=== PATIENT | female | born 1990 | race Caucasian/White ===

== ENCOUNTER 2023-07-22 09:18 | Emergency (ER) | payer BC, MEDICARE, SELFPAY ==
[2023-07-22 09:40] VITALS: BP 102/65; PULSE 80; RESP 16; TEMP 36.3; O2SAT 100
--- NOTE | 2023-07-22 09:49 | ED.FEMALEGU ---
HPI - Female Genitourinary General Chief complaint: Urogenital-Female Stated complaint: urinary issue Time Seen by Provider: 07/22/23 09:49 Source: patient Mode of arrival: ambulatory Limitations: no limitations History of Present Illness HPI Narrative: 33-year-old female presents with complaint of urinary frequency, urgency, dysuria, lower abdominal cramping. Reports that symptoms started 3 days ago with irritation after having intercourse several times. Symptoms progressed. Notice blood in urine last night. States she got up last night at least 12 times to urinate. Took azo at 4:00 a.m.. Afebrile. Denies nausea vomiting diarrhea. All systems reviewed and negative except as noted above. Related Data Home Medications Medication Instructions Recorded Confirmed buspirone 10 mg tablet 10 mg PO DAILY 07/22/23 07/22/23 famotidine 20 mg tablet 20 mg PO DAILY 07/22/23 07/22/23 metoprolol tartrate 50 mg tablet 50 mg PO BID 07/22/23 07/22/23 nortriptyline 25 mg capsule 25 mg PO HS 07/22/23 07/22/23 Allergies Allergy/AdvReac Type Severity Reaction Status Date / Time bupropion [From Wellbutrin] Allergy Intermediate Rash Verified 07/22/23 09:56 phenytoin [From Dilantin] Allergy Intermediate Rash Verified 07/22/23 09:56 Review of Systems Review of Systems: CONSTITUTIONAL: Denies fever, chills, or sweats. EYES: Denies visual changes, redness, or discharge. ENT: Denies rhinorrhea, congestion, sore throat, or otalgia. CARDIOVASCULAR: Denies chest pain, palpitations, or edema. RESPIRATORY: Denies cough or dyspnea. GASTROINTESTINAL: Denies abdominal pain, nausea, vomiting, or diarrhea. GENITOURINARY: Reports dysuria, urgency, frequency and hematuria. SKIN: Denies rash or itching. MUSCULOSKELETAL: Denies back pain, joint pain, or myalgia. NEUROLOGIC: Denies headache, numbness, or weakness. PSYCHIATRIC: Denies anxiety or depression. All other systems reviewed are negative, except as documented in HPI. PMFSH Comments At time of signature, agree with nursing past medical, surgical, social and family history. There is no relevant family history pertinent to the presenting complaint. Exam Narrative: GENERAL: This is a well-nourished, well-developed patient, in no apparent distress. HEAD: normocephalic, atraumatic. EYES: PERRL. Sclera clear/white. Vision is grossly intact. EARS: External ears normal NOSE: External nose normal NECK: Neck supple, non-tender without lymphadenopathy, masses or thyromegaly. CARDIOVASCULAR: Regular rate and rhythm without murmurs, gallops, or rubs. RESPIRATORY: Clear to auscultation. Breath sounds equal bilaterally. No wheezes, rales, or rhonchi. SKIN: warm, Dry, intact with no suspicious lesions or rash, good texture and turgor. NEURO: awake, alert, and oriented to person, place and time. There were no obvious focal neurologic abnormalities. EXTREMITIES: No joint tenderness, effusion, or edema noted. Course Course Level of Care: Express Care Visit Vital Signs Vital signs: Vital Signs Temperature 36.3 C L 07/22/23 09:40 Pulse Rate 80 07/22/23 09:40 Respiratory Rate 16 07/22/23 09:40 Blood Pressure 102/65 07/22/23 09:40 Pulse Oximetry 100 07/22/23 09:40 Oxygen Delivery Room Air 07/22/23 09:40 Temperature 36.3 C L 07/22/23 09:40 Pulse Rate 80 07/22/23 09:40 Respiratory Rate 16 07/22/23 09:40 Blood Pressure 102/65 07/22/23 09:40 Pulse Oximetry 100 07/22/23 09:40 Oxygen Delivery Room Air 07/22/23 09:40 reviewed MDM - Female Genitourinary MDM Narrative Medical decision making narrative: Patient is aware of diagnosis, understands and agrees to treatment plan. Anticipatory guidance given. Patient agrees to follow-up as directed and is aware of reasons to seek care at the emergency department. Portions of this record may have been created with voice recognition software Differential Diagnosis Differential diagnosis: Likely ur
== END 2023-07-22 10:03 | disposition home or self-care (01) ==
PROVIDERS: Emergency Provider Nurse Practitioner Family; PCP Family Medicine
DX: N39.0 Urinary tract infection, site not specified (principal); K21.9 Gastro-esophageal reflux disease without esophagitis; F41.9 Anxiety disorder, unspecified
CPT/HCPCS: 87086; 87088; 99203; G0463

== ENCOUNTER 2023-07-30 14:35 | Emergency (ER) | payer BC, MEDICARE, SELFPAY ==
[2023-07-30 15:00] VITALS: BP 117/69; PULSE 92; RESP 16; TEMP 37.2; O2SAT 99
--- NOTE | 2023-07-30 15:20 | ED.LOWEXIN ---
HPI - Extremity Injury (Lower) General Chief Complaint: Extremity Injury, Lower Stated Complaint: left foot pain Time Seen by Provider: 07/30/23 15:20 Source: patient and RN notes reviewed Mode of arrival: ambulatory Limitations: no limitations History of Present Illness HPI Narrative: 33 year old female presents with concern for left foot pain. She reports yesterday she was walking on a treadmill my she felt a sudden snap on the bottom of her left foot. Reports it was throbbing yesterday at rest, that has improved but is very painful to bear any weight on. She reports the pain is exacerbated by wiggling her toes remove her ankle. She reports she recently began being active again after long time being inactive. Reports she has had similar injury in the past that took about a month to heal that she sustained from running. MD complaint: foot injury Related Data Home Medications Medication Instructions Recorded Confirmed buspirone 10 mg tablet 10 mg PO DAILY 07/22/23 07/30/23 famotidine 20 mg tablet 20 mg PO DAILY 07/22/23 07/30/23 metoprolol tartrate 50 mg tablet 50 mg PO BID 07/22/23 07/30/23 nortriptyline 25 mg capsule 25 mg PO HS 07/22/23 07/30/23 Allergies Allergy/AdvReac Type Severity Reaction Status Date / Time bupropion [From Wellbutrin] Allergy Intermediate Rash Verified 07/30/23 15:12 phenytoin [From Dilantin] Allergy Intermediate Rash Verified 07/30/23 15:12 Review of Systems Review of Systems: CONSTITUTIONAL: Denies malaise, chills, sweats, or fever. SKIN: Denies rash or itching, open skin, laceration, abrasion, redness, warmth, swelling. MUSCULOSKELETAL: Reports left knee pain NEUROLOGIC: Denies numbness, weakness All systems reviewed & are unremarkable except as noted in HPI and below PMFSH Comments At time of signature, agree with nursing past medical, surgical, social and family history. There is no relevant family history pertinent to the presenting complaint Exam Narrative: GENERAL: Well-appearing, well-nourished, and in no acute distress. HEAD: Normocephalic, atraumatic. EYES: PERRLA, conjunctivae clear NECK: Supple. CHEST: Speaks in full sentences. No respiratory distress. HEART: Regular rate and rhythm. Normal and equal peripheral pulses. EXTREMITIES: [Xxx] has normal strength and sensation, normal range of motion. No edema or ecchymosis. 5/5 strength with [xxx] flexion and extension. Normal sensation with sensitivity to light touch and pain. No point tenderness. No open wounds, no skin tenting, no devitalized tissue or atrophy, no trophic changes, no obvious deformity, alignment normal, nearby joints and structures intact. Distal pulses palpable and equal bilaterally, skin warm, dry, pink. Capillary refill less than 3 seconds. SKIN: Warm, dry, no rash. NEURO: Alert and oriented x3. PSYCH: Normal mood and affect Course Course Emergency Course: Patient is aware of diagnosis, understands and agrees to treatment plan. Anticipatory guidance given. Patient agrees to follow-up as directed and is aware of reasons to seek care at the emergency department. Portions of this record may have been created with voice recognition software Level of Care: Express Care Visit Vital Signs Vital signs: Vital Signs Temperature 99.0 F 07/30/23 15:00 Pulse Rate 92 07/30/23 15:00 Respiratory Rate 16 07/30/23 15:00 Blood Pressure 117/69 07/30/23 15:00 Pulse Oximetry 99 07/30/23 15:00 Oxygen Delivery Room Air 07/30/23 15:00 Temperature 99.0 F 07/30/23 15:00 Pulse Rate 92 07/30/23 15:00 Respiratory Rate 16 07/30/23 15:00 Blood Pressure 117/69 07/30/23 15:00 Pulse Oximetry 99 07/30/23 15:00 Oxygen Delivery Room Air 07/30/23 15:00 Reviewed. MDM - Extremity Injury (Lower) MDM Narrative Medical decision making narrative: Patients injury and pain is consistent with musculoskeletal etiology. No signs of neurological or vascular compromise on exam. Compartments
== END 2023-07-30 15:41 | disposition home or self-care (01) ==
PROVIDERS: Emergency Provider Nurse Practitioner; PCP Family Medicine
DX: S93.602A Unspecified sprain of left foot, initial encounter (principal); X50.3XXA Overexertion from repetitive movements, initial encounter; Y93.A1 Activity, exercise machines primarily for cardiorespiratory conditioning; Y92.9 Unspecified place or not applicable; K21.9 Gastro-esophageal reflux disease without esophagitis; F41.9 Anxiety disorder, unspecified
CPT/HCPCS: 99213; G0463

== ENCOUNTER 2024-09-11 11:40 | Outpatient (CLI) | payer BC, MEDICARE, SELFPAY ==
--- NOTE | ~2024-09-11 | MMUS_ITS ---
EXAMINATION: US breast BI complete, MM diagnostic hitesh BI w mayra HISTORY: Palpable right breast lump TECHNIQUE: Additional 3-D tomosynthesis images of the breasts were performed and synthetic 2-D images were generated. CAD analysis was submitted and interpreted. High resolution bilateral complete breas t ultrasound was performed. COMPARISON: None BREAST PARENCHYMAL COMPOSITION: Dense: The breasts are extremely dense, which lowers the sensitivity of mammography. FINDINGS: MAMMOGRAPHIC FINDINGS: The breasts are symmetric. There are no suspicious masses, calcifications or architectural distortion in either breast to suggest malignancy. ULTRASOUND: Complete US of all 4 quadrants of the breast/s and retroareolar region was reviewed. Right breast: Normal heterogeneous echotexture without focal mass. Left breast: There is a simple cyst measuring 6 mm at 5:00, 3 cm from the nipple. There is an oval hy perechoic mass in the left breast at 10:00, 4 cm from the nipple measuring up to 7 mm, likely benign lipoma. IMPRESSION: 1. Probable benign left breast mass at 10:00, 4 cm from the nipple. 2. Recommend 6 month follow-up Limited left breast ultrasound BI-RADS category 3, probably benign findings. Reviewed, dictated and finalized at location A. UM APPLICATOR OPERATOR IMPRESSION: 1. Probable benign left breast mass at 10:00, 4 cm from the nipple. 2. Recommend 6 month follow-up Limited left breast ultrasound BI-RADS category 3, probably benign findings.
== END 2024-09-11 11:41 | disposition home or self-care (01) ==
PROVIDERS: PCP Family Medicine; Visit Provider Obstetrics & Gynecology
DX: N63.10 Unspecified lump in the right breast, unspecified quadrant (principal); R92.8 Other abnormal and inconclusive findings on diagnostic imaging of breast
CPT/HCPCS: 76641; 77062; 77066; G0279

== ENCOUNTER 2025-01-15 11:59 | Outpatient (CLI) | payer BC, MEDICARE, SELFPAY ==
--- NOTE | ~2025-01-15 | XR_ITS ---
XR finger 5th LT min 2V Ordering provider: Garrison Garza, History: . Finger pain, L . Comparison: None. FINDINGS: BONES: Fracture at the base of the distal phalanx of the left little finger is seen posteriorly exten ding to the joint space. No other fractures seen. JOINT SPACES: Normal. SOFT TISSUES: Normal. IMPRESSION: Fracture at the base of the distal phalanx of the left fifth finger. Reviewed, dictated and finalized at location A.
== END 2025-01-15 12:00 | disposition home or self-care (01) ==
PROVIDERS: PCP Family Medicine; Visit Provider Family Medicine
DX: S62.637A Displaced fracture of distal phalanx of left little finger, initial encounter for closed fracture (principal); X58.XXXA Exposure to other specified factors, initial encounter
CPT/HCPCS: 73140

== ENCOUNTER 2025-04-17 10:42 | Outpatient (CLI) | payer BC, MEDICARE, SELFPAY ==
--- NOTE | ~2025-04-17 | US_ITS ---
EXAMINATION: US breast LT limited INDICATION: 35-year old female; BI-RADS 3, short-term follow-up probably benign left breast mass. COMPARISON: 09/11/2024 TECHNIQUE: Targeted sonographic evaluation of the upper inner LEFT breast was completed. FINDINGS: A 0.9 x 0.8 x 0.4 cm Hyperechoic mass at 10:00, 4 cm from the nipple location in the LEFT breast redemonstrated is unchanged. IMPRESSION: Probably benign Hyperechoic LEFT breast mass has demonstrated 6 months stability since initial evaluation on 09/11/2024. RECOMMENDATION: 12 month follow-up LEFT breast ultrasound. BI-RADS category 3, probably benign finding. Reviewed, dictated and finalized at location B. IMPRESSION: Probably benign Hyperechoic LEFT breast mass has demonstrated 6 months stabili ty since initial evaluation on 09/11/2024. RECOMMENDATION: 12 month follow-up LEFT breast ultrasound. BI-RADS category 3, probably benign finding.
--- OUTSIDE RECORDS SUMMARY | 2025-04-17 10:47 | XMS_ITS | Clinical Summary ---
Author Organization [facility] Address [facility] [place] [address] Care Team Providers Care Study Assistant Name Role Phone Garrison Qureshi Florentino PETERSON Primary Care Provider Allergies Active Allergy Reactions Criticality Noted Date Comments Bupropion Rash Medium 01/18/2016 Codeine Nausea Only,Unknown Low 01/18/2016 Phenytoin Rash,Unknown Medium 01/18/2016 Immunizations Immunization Administration Dates Next Due Flublok (Quadrivalent) 05/30/2019 Fluzone 6 Months+ (5.0 mL Mu lti Dose Vial) 07/28/2020 Influenza (Generic) 06/05/2017, 6,06/18/2015,2013 Influenza Adult (Generic) 04/29/2018 Tdap (Generic) 05/04/2014 Social History Tobacco Use Types Packs/Day Years Used Date Smoking Tobacco: Never Assessed Comments Unknown Sex and Gender Information Value Date Recorded Sex Assigned at Not on file Legal Sex Female 12:51 AM CDT Gender Identity Not on file Sexual Orientation Not on file Last Filed Vital Signs Vital Sign Reading Time Taken Comments Blood Pressure 102/62 03/08/2018 10:20 AM CDT Pulse - - Temperature - - Respiratory Rate - - Oxygen Saturation - - Inhaled Oxygen Concentration - - Weight 51.7 kg (114 lb) 03/08/2018 10:20 AM CDT Height 162.6 cm (5' 4) 03/08/2018 10:20 AM CDT Body Mass Index 19.57 03/08/2018 10:20 AM CDT Plan of Treatment Health Maintenance Due Date Last Done Comments Cervical Cancer Screening Pa p Smear (Age 30 to 64) Every 3 Years 1989 Annual Physical 01/13/1992 Hepatitis C 2007 Hepatitis B Vaccines (1 of 3 - 19+ 3-dose series) 01/13/2008 HPV Vaccines (1 - 3-dose SCD M series) 01/13/2016 Cervical Cancer Screening Pa p with HPV Testing (Age 30 to 64) Every 5 Years 2019 Cervical Cancer Screening wi th HPV 2019 COVID-19 Vaccine (1 - 2023-2 5 season) 2024 DTaP, Tdap and Td Vaccines ( 2 - Td or Tdap) 05/04/2024 05/04/2014, 09/03/1990 Meningococcal B Vaccine Aged Out No l onger eligible based on patient's age to complete this topic Meningococcal Vaccine Aged Out No briana alexis eligible based on patient's age to complete this topic Pneumococcal Vaccine: Pediatrics (0 to 5 Years) and At-Risk Patients (6 to 49 Years) Aged Out No longer eligible b ased on patient's age to complete this topic RSV Immunizations Under 20 Months Aged Out No longer eligible b ased on patient's age to complete this topic Insurance Care Teams Study Assistant Relationship Specialty Start Date End Date Garrison Qureshi DO [facility] - General 11/23/15
--- OUTSIDE RECORDS SUMMARY | 2025-04-17 10:47 | XMS_ITS | Clinical Summary ---
Author Organization [facility] Office [facility] Address [address] [place] [address] Care Team Providers Care Reiki Practitioner Name Role Phone Osman Silvestre DO Unavailable [phone] Garrison Garza DO Primary Care Provider + Allergies Active Allergy Reactions Criticality Noted Date Comments Bupropion Rash Medium 01/18/2016 Codeine Nausea only Low 01/18/2016 Phenytoin Rash Medium 01/18/2016 Medications SUMAtriptan (IMITREX) 100 mg tablet TAKE 1 TABLET BY MOUTH ONCE NEEDED FOR MIGRAINE HEADACHE 9 tablet 5 2 Active Additional Information Patient not taking.Reported on 03/09/2025 metoclopramide (REGLAN) 10 mg tablet Take 1 tablet (10 mg total) by mouth 4 (four) times a day 60 tablet 5 3 Active Additional Information Patient not taking.Reported on 03/09/2025 metoprolol tartrate (LOPRESSOR) 50 mg immediate release tablet Take 1 tablet by mouth twice daily 60 tablet 5 3 Active Additional Information Patient not taking.Reported on 03/09/2025 famotidine (PEPCID) 20 mg tablet Take 1 tablet (20 mg total) by mouth 2 (two) times a day 60 tablet 1 4 Active Additional Information Patient not taking.Reported on 03/09/2025 cyclobenzaprin e (FLEXERIL) 5 mg tablet Take 1 tablet (5 mg total) by mouth 2 (two) times a day as needed for muscle spasms CAUTION: MAY CAUSE DROWSINESS 30 tablet 4 Active Additional Information Patient not taking.Reported on 03/09/2025 HYDROcodone-ac etaminophen (NORCO) 5-325 mg per tabletIndicati ons:Pain Take 1 tablet by mouth every 6 (six) hours as needed for pain 28 tablet 4 Active Additional Information Patient not taking.Reported on 03/09/2025 prazosin (MINIPRESS) 1 mg capsule TAKE 4 CAPSULES BY MOUTH ONCE DAILY AT BEDTIME TAKE WITH 5 MG TO EQUAL 9 MG TOTAL 5 Active naproxen (ALEVE) 220 mg tablet Take 1 tablet (220 mg total) by mouth 2 (two) times a day with meals For mild pain Active prazosin (MINIPRESS) 5 mg capsule Take 1 capsule (5 mg total) by mouth nightly Take with 4 mg for total dose of 9 mg nightly Active lamoTRIgine (LaMICtal) 100 mg tablet Take 100 tablets by mouth daily 1 05/31/20 21 Discontin ued(Error ) Hospital, Clinic, or Other Facility Administered Medication Ordered Dose Route Frequency Start Date End Date Status sodium chloride 0.9% infusionIndications:Dehydrat ion 1000 mL/hr IV Continuous 06/17/2020 Active Active Problems Problem Noted Date Diagnosed Date Closed nondisplaced fracture of distal phalanx of left little finger 01/21/2025 Closed displaced fracture of distal phalanx of left little finger 01/21/2025 Gastroesophageal reflux disease without esophagi tis 01/10/2024 Migraine 12/18/2022 Assessment & Plan (12/18/2022 4:24 PM CDT): Uses norco for headache only 1 rx lasts about 1 year Severe episode of recurrent major depressive disorder, without psychotic features 05/31/2021 Assessment & Plan (12/18/2022 4:22 PM CDT): Seeing psychiatrist Doing ok Assessment & Plan (03/16/2022 2:57 PM CDT): Patient is well controlled. Continue current treatment. Annual physical exam 03/21/2021 Assessment & Plan (12/18/2022 4:23 PM CDT): meds reviewed and reconciled Assessment & Plan (03/21/2021 5:00 PM CDT): Refill imitrex and hydrocodone Complex posttraumatic stress disorder 06/11/2020 Trauma in childhood 06/11/2020 THERON (generalized anxiety disorder) 06/11/2020 Assessment & Plan (12/18/2022 4:24 PM CDT): Continues on buspar Other insomnia 06/11/2020 Emesis 04/28/2020 Assessment & Plan (04/28/2020 10:28 AM CDT): Lab zofran Diarrhea 01/01/2020 Assessment & Plan (03/16/2022 3:04 PM CDT): Change omeprazole to pepcid 20 mg bid Refer to G.I. Assessment & Plan (2022 11:18 AM CDT): Chronic for years Happens with meals Order a celiac sprue screen Add questran daily Assessment & Plan (04/28/2020 10:28 AM CDT): Add cipro 500 mg bid 1 week Lab Assessment & Plan (01/01/2020 8:48 AM CDT): Refer to G.I. 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 Continue current treatment. Seizure 09/22/2019 Oral pain 05/13/2019 Assessment & Plan (05/13/2019 12:44 PM CDT): Refill norco Check a cbc Will f/u with dentist Seizure disorder 05/31/2017 Assessment & Plan (10/16/2019 10:53 AM DATA CONTROL CLERK SUPERVISOR): Pseudo seizure Has seen neurologist Assessment & Plan (08/27/2019 10:43 AM DATA CONTROL CLERK SUPERVISOR): Not a candidate for wellbutrin Resolved Problems Problem Noted Date Diagnosed Date Resolved Date Pain of both shoulder joints 03/16/2022 12/18/2022 Assessment & Plan (03/16/2022 2:55 PM CDT): Mildly positive DIOR and rheumatoid factor. She has ongoing issues with arthralgias. I am going to have her see a glue reel operator Pain in both upper extremities 2022 12/18/2022 Assessment & Plan (2022 11:16 AM CDT): No neck pain Check a x ray c spine Check dior RF cpk May need NCS Will wait on above tests Pain of both elbows 10/10/2021 12/19/19 23 Assessment & Plan (10/10/2021 8:29 AM DATA CONTROL CLERK SUPERVISOR): I do believe this is related to her ECT. Most likely she has bilateral tendinitis. I am going to x-ray the bilateral elbows. I am going to check a sed rate a rheumatoid factor anti nuclear antibody uric acid and I am also going to do a creatinine phosphokinase. For the present time she can continue the ibuprofen. If test results returned negative I am going to set her up with physical therapy Sinusitis, acute 03/28/2021 12/18/2022 Assessment & Plan (03/28/2021 5:47 PM CDT): jere guzmánkorin Mcwilliamsrejimaryanne marti covid test Persistent depressive disorder 06/11/2020 12/18/2022 Assessment & Plan (2022 11:20 AM CDT): Doing ECT every 2 weeks Anxiety 08/27/2019 2022 Assessment & Plan (06/17/2020 12:57 PM CDT): Severe anxiety likely contributing to her symptoms. Seeing psychiatrist and in intensive outpatient program with counseling and monitoring three days/week. Continue medications as per psyche. Assessment & Plan (10/16/2019 10:53 AM DATA CONTROL CLERK SUPERVISOR): On cymbalta Assessment & Plan (09/10/2019 10:00 AM DATA CONTROL CLERK SUPERVISOR): Increase buspar to 15 mg tid Stay off work Will see psychiatrist Assessment & Plan (08/27/2019 10:42 AM DATA CONTROL CLERK SUPERVISOR): Cont buspar and benzo Depression, major, recurrent 08/27/2019 03/16/2022 Assessment & Plan (10/16/2019 10:53 AM DATA CONTROL CLERK SUPERVISOR): Cont to see psychiatrist Assessment & Plan (09/17/2019 9:12 AM DATA CONTROL CLERK SUPERVISOR): Severe anxiety Will need hospital Assessment & Plan (09/10/2019 10:00 AM DATA CONTROL CLERK SUPERVISOR): Continue current rx Assessment & Plan (08/27/2019 10:43 AM DATA CONTROL CLERK SUPERVISOR): On zoloft Needs to see a psychiatrist ' Current episode of major dep ressive disorder without prior episode 11/14/2018 08/27/2019 Assessment & Plan (05/13/2019 12:45 PM CDT): Doing well Assessment & Plan (02/13/2019 10:33 AM CDT): Increase sertraline to 50 mg daily Cont xanax Add buspar 15 half daily Right upper quadrant abdominal pain 06/01/2017 02/13/2019 Encounters Date Type Department Care Team Description 03/30/2025 9:50 AM CDT Ancillary Procedure [facility] [address] [place] [phone] 03/30/2025 9:30 AM CDT Office Visit [facility] [address] [place] [phone] Blane Rodriguez MD Closed displaced fracture of distal phalanx of left little finger with routine healing, subsequent encounter (Primary Dx) 03/09/2025 8:30 AM CDT Ancillary Procedure [facility] [address] [place] [phone] 03/09/2025 8:30 AM CDT Office Visit [facility] [address] [place] [phone] Blane Rodriguez MD Left hand pain (Primary Dx); Closed displaced fracture of distal phalanx of left little finger with routine healing, subsequent encounter 02/24/2025 Telephone [facility] [address] [place] [phone] Domi Mccann MA 02/09/2025 10:25 AM CDT Ancillary Procedure [facility] [address] [place] [phone] 02/09/2025 10:00 AM CDT Office Visit [facility] [address] [place] [phone] Blane Rodriguez MD Closed nondisplaced fracture of distal phalanx of left little finger, initial encounter (Primary Dx); Cubital tunnel syndrome on left 01/28/2025 Telephone [facility] [address] [place] [phone] Blane Rodriguez MD Post-op Problem 01/27/2025 10:30 AM CDT - 01/27/2025 11:30 AM CDT Surgery [facility] [place] [address] [place] [phone] Blane Rodriguez MD LEFT SMALL FINGER DISTAL PHALANX OPEN REDUCTION WITH PINNING 01/27/2025 9:29 AM CDT Anesthesia Event [facility] OR [address] [place] [phone] Yossi Templeton MD Lee, Walter, MD 01/27/2025 7:26 AM CDT - 01/27/2025 12:25 PM CDT Hospital Encounter [facility] OR [address] [place] [phone] Blane Rodriguez MD Closed displaced fracture of distal phalanx of left little finger with delayed healing, subsequent encounter [S62.637G] (Primary Dx) Discharge Disposition: Discharge to home or self care 01/21/2025 9:15 AM CDT Ancillary Procedure [facility] [address] [place] [address] [place] [phone] 01/21/2025 8:30 AM CDT Office Visit [facility] [address] [place] [address] [place] [phone] Blane Rodriguez MD Closed nondisplaced fracture of distal phalanx of left little finger, initial encounter 01/15/2025 - 01/15/2025 11:59 PM CDT Hospital Encounter [facility] [employer] [address] [place] [address] Discharge Disposition: Discharge to home or self care from Last 3 Months Immunizations Immunization Administration Dates Next Due DTP 09/03/1990 Influenza, Quadrivalent, Rec ombinant, Egg Free, Preservative Free, Intramuscular 05/30/2019 Influenza, Quadrivalent, Spl it, Intramuscular 07/28/2020 Influenza, Quadrivalent, Spl it, Preservative Free, Intramuscular 10/10/2021 Influenza, Unspecified 05/20/2022,2017,06/05/2017,06/02,06/18/2015 OPV 09/03/1990 Tdap 05/04/2014 Surgical History Surgery Date Site/Laterality Comments HERNIA REPAIR Right inguinal at age 13 APPENDECTOMY TOOTH EXTRACTION 08/20/2018 - 08/19/2019 COLPOSCOPY 08/20/2018 - 08/19/2019 ABLATION uterine FINGER SURGERY 01/27/2025 Left Left Small Finger Distal Phalanx Open Reduction with Pinning FINGER FRACTURE SURGERY 01/27/2025 Left sm finger distal phalanx ORIF Medical History Medical History Date Comments PTSD (post-traumatic stress disorder) takes prazosin Sinus tachycardia takes metoprol ol Pseudoseizures Severe depression (HCC) has had ECT treatments Motion sickness Headache migraines Dislocation closed, shoulder 2023 lef t side-no surgery Family History Medical History Relation Name Comments Colon cancer Father Anal Cancer Mother Anesthesia problems Neg Hx Relation Name Status Comments Brother 1 Alive Brother 2 Alive Father (Age 57) Maternal Grandfather Maternal Grandmother Alive Mother Alive Paternal Grandfather Paternal Grandmother Alive Social History Tobacco Use Types Packs/Day Years Used Date Smoking Tobacco: Former Cigarettes 0.5 5 2 006 - 2010 Smokeless Tobacco: Never Tobacco Cessation:Counseling Given: Not Answered Alcohol Use Standard Drinks/Week Comments Yes 0 (1 standard drink = 0.6 oz pur e alcohol) occ AUDIT-C Answer Date Recorded Q1: How often do you have a drink containing alc ohol? 2-3 times a week 01/27/2025 Q2: How many drinks containi ng alcohol do you have on a typical day when you are drinking? 1 or 2 01/27/2025 Frequency of Binge Drinking Not on file 01/18 PHQ-2 Answer Date Recorded PHQ-2 Total Score (If total score is 3 or more points, staff should administer the PHQ-9) 4 12/18/2022 Personal Safety Answer Date Recorded Have you ever been in or are you currently in a harmful physical or emotional relationship or is someone making you feel afraid or unsafe? 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 on file Not on file Obstetrics History Last Filed Vital Signs Vital Sign Reading Time Taken Comments Blood Pressure 112/75 01/27/2025 12:00 PM CDT Pulse 63 01/27/2025 12:00 PM CDT Temperature 37.1 C (98.7 F) 01/27/2025 10:35 AM CDT Respiratory Rate 20 01/27/2025 11:15 AM CDT Oxygen Saturation 100% 01/27/2025 12:00 PM CDT Inhaled Oxygen Concentration - - Weight 59.7 kg (131 lb 9.6 oz) 01/27/2025 7:35 A M CDT Height 160 cm (5' 3) 01/27/2025 7:35 AM CDT Body Mass Index 23.31 01/27/2025 7:35 AM CDT Plan of Treatment Health Maintenance Due Date Last Done Comments Cervical Cancer Screening 1989 Hepatitis C Screening 1989 Varicella Vaccines (1 of 2 - 13+ 2-dose series) 2002 Hepatitis B Screening 2007 HPV Vaccines (1 - 3-dose SCDM series) 01/13/2016 Depression Screening 12/19/2023 12/18/2022, 03/28/2021, 02/13/2019 Regular Well Visit/Exam 18-64 12/19/2023 12/18/2022, 12/18/2022, 03/21/2021 Covid-19 Vaccine ( season) 2024 2022, 05/13/2021, 04/12/2021 DTaP/Tdap/Td Vaccine (3 - Td or Tdap) 05/04/2024 05/04/2014, 09/03/1990 Influenza Vaccine (#1) 2025 2, 10/10/2021, 07/28/2020, Additional history exists Pneumococcal vaccine <65 Aged Out No longer eligible based on patient's age to complete this topic Medical Devices Implanted Type Area Strike Operations Officer Device Identifier Shelf Expiration Date Model / Serial / Lot [employer] Heriberto .035in 9in 1 [place] [employer] Sm[employer] Wire Fixation [id number] - [id number] Implanted:Qty: 1 on 01/27/2025 by Blane Rodriguez MD at [facility] Wire Left: Little Finger [employer] [id number] S / / [employer] Heriberto .035in 9in 1 [place] Smooth Wire Fixation [id number] - [id number] Implanted:Qty: 1 on 01/27/2025 by Blane Rodriguez MD at [facility] Wire Left: Little Finger [employer] [id number] S / / Procedures Procedure Name Priority Date/Time Associated Diagnosis Comments XR HAND LEFT 3 OR MORE VIEWS Schedule Routine, Read Routine (OP Routine) 03/30/2025 10:28 AM CDT Closed displaced fracture of distal phalanx of left little finger with routine healing, subsequent encounter XR HAND LEFT 3 OR MORE VIEWS Schedule Routine, Read Routine (OP Routine) 03/09/2025 8:58 AM CDT Left hand pain XR HAND LEFT 3 OR MORE VIEWS Schedule Routine, Read Routine (OP Routine) 02/10/2025 7:48 AM CDT Closed nondisplaced fracture of distal phalanx of left little finger, initial encounter FL FLUOROSCOPY < 1 HOUR IP Routine 01/27/2025 9:56 AM CDT MD AN PROCEDURE PLACEHOLDER Routine 01/27/2025 9:33 AM CDT MD AN ELECTIVE SUPRAGLOTTIC AIRWAY Routine 01/27/2025 9:33 AM CDT OPEN REDUCTION INTERNAL FIXATION - FINGER 01/27/2025 9:23 AM CDT Closed displaced fracture of distal phalanx of left little finger, initial encounter Case Notes LT SMALL FINGER DISTAL PHALANX CL VS OR WITH PINNING POCT HCG, URINE Routine 01/27/2025 7:30 AM CDT XR HAND LEFT 3 OR MORE VIEWS Schedule Routine, Read Routine (OP Routine) 01/21/2025 1:04 PM CDT Closed nondisplaced fracture of distal phalanx of left little finger, initial encounter XR TRANSFER OF OUTSIDE FILMS Routine 01/15/2025 12:00 AM CDT from Last 3 Months Results * XR Hand Left 3 or More Views (03/30/2025 10:28 AM CDT) Anatomical Region Laterality Modality Upper Extremities, Hand Left Computed Radiography Narrative 03/30/2025 10:28 AM CDT Left small finger x-ray: AP lateral and oblique x-rays of the left small finger on the mini C-arm today show a Healed distal phalanx fracture (03/30/2025) Blane Rodriguez MD IMG XR PROCEDURES Final Result * XR Hand Left 3 or More Views (03/09/2025 8:58 AM CDT) Anatomical Region Laterality Modality Upper Extremities, Hand Left Computed Radiography Narrative 03/09/2025 8:58 AM CDT AP lateral and oblique x-rays of the left small finger on the mini C-arm today show postoperative changes across a healing bony mallet fracture of the small finger Blane Rodriguez MD IMG XR PROCEDURES Final Result * XR Hand Left 3 or More Views (02/10/2025 7:48 AM CDT) Anatomical Region Laterality Modality Upper Extremities, Hand Left Computed Radiography Narrative 02/10/2025 7:48 AM CDT Description: X-rays of the left small finger on the mini C-arm, AP lateral and oblique, show postoperative changes across a healing bony mallet fracture Blane Rodriguez MD IMG XR PROCEDURES Final Result * FL Fluoroscopy < 1 Hour (01/27/2025 9:56 AM CDT) Narrative SANTO_[email or web address]_MHE - 01/27/2025 9:59 AM CDT The images from this study are not interpreted by Radiology. Please refer to the physician's procedure / OR operative note. us Blane Rodriguez MD IMG FLUOROSCOPY PROCEDUR ES Final Result RAD_[email or web address] * MD AN ELECTIVE SUPRAGLOTTIC AIRWAY, MD AN PROCEDURE PLACEHOLDER (01/27/2025 9:33 AM CDT) Narrative Volodymyr Constantino CRNA - 01/27/2025 9:33 AM CDT Volodymyr Constantino CRNA 01/27/2025 9:33 AM Airway Patient location: OR Urgency: elective Indications for airway management: anesthesia Difficult airway: no Staff: Supervising provider: Yossi Templeton MD Placed by: STARS ANALYTICAL LEAD: Volodymyr Constantino CRNA Emergent airway documentation: Risks and benefits discussed: yes Consent obtained: yes Consent given by: patient Airway prep: Preoxygenated: yes Patient position: sniffing Mask difficulty assessment: 0 - not attempted Spontaneous ventilation during airway: absent Sedation level during airway: deep Final airway details: Final airway type: supraglottic airway Final supraglottic airway: IGel SGA size: 3 Number of attempts: 1 Planned trial extubation: yes Additional comments: Atraumatic placement. Dentition as preop. Breath sounds clear and equal bilaterally. Consistent and appropriate end-tidal CO2 present. Yossi Templeton MD ANESTHESIA ORDERABLES Final R esult * POCT hCG, urine (01/27/2025 7:30 AM CDT) HCG, ur, POC Negative Negative Lot Number [id number] QC Backgroud Clear Acceptable QC Control Line Acceptable Urine 01/27/2025 7:30 AM CDT Luis Rea MD POINT OF CARE TEST ORDERABLES Fi nal Result * XR Hand Left 3 or More Views (01/21/2025 1:04 PM CDT) Anatomical Region Laterality Modality Upper Extremities, Hand Left Computed Radiography Narrative 01/21/2025 1:04 PM CDT AP lateral and oblique x-rays of the right hand on the mini C-arm show postoperative changes across a healing 4th metacarpal fracture us Blane Rodriguez MD IMG XR PROCEDURES Final Result * XR Outside Reference (01/15/2025 12:00 AM CDT) Narrative DANIELLE_MHB_MHE - 01/21/2025 8:56 AM CDT This order has been auto-finalized and does not contain a result. us Provider Transcribed Order IMG XR PROCEDURES Fin al Result RAD_JUDI_MHB_MHE from Last 3 Months Insurance [employer] [facility] Address: [address] [place] [address] MEDICARE MustHaveMenus ACCESS OOS MustHaveMenus ACCESS OOS MEDICARE MustHaveMenus ACCESS OOS Advance Directives For more information, please contact: [phone] * Full Code (Latest Code Status on File) Date Activated Date Inactivated Comments 03/27/2022 5:06 AM 03/28/2022 5:13 AM * Full Code Date Activated Date Inactivated Comments 02/27/2022 6:11 AM 02/28/2022 5:09 AM * Full Code Date Activated Date Inactivated Comments 01/30/2022 5:10 AM 01/31/2022 5:08 AM * Full Code Date Activated Date Inactivated Comments 01/18/2022 5:48 AM 01/19/2022 5:07 AM * Full Code Date Activated Date Inactivated Comments 01/02/2022 5:51 AM 01/03/2022 5:14 AM Care Teams Reiki Practitioner Relationship Specialty Start Date End Date Garrison Garza DO [address] [place] [address] PCP - General Family Medicine 01/04/24 Osman Silvestre DO [address] [place] [address] Referring Physician Psychiatry 05/02/21
--- OUTSIDE RECORDS SUMMARY | 2025-04-17 10:47 | XMS_ITS | Encounter Summary ---
Author Organization [facility] Healthcare Address [address] [place] [address] Care Team Providers Care Obstetrics And Gynecology Professor Name Role Phone Garrison Garza DO Primary Care Provider + Osman Silvestre DO Unavailable [phone] Sue Muñoz NP Primary Care Provider [phone] Garrison Garza DO Primary Care Provider + Encounter Details Date Type Department Care Team (Late st Contact Info) Description 06/10/2021 Therapy Psychiatry Enedina Resendiz MD [address] [facility] [address] [place], [place] [id number] Severe episode of recurrent major depressive disorder, without psychotic features (HCC) (Primary Dx) Social History Tobacco Use Types Packs/Day Years Used Date Smoking Tobacco: Former Cigarettes 0.5 5 2 006 - 2010 Smokeless Tobacco: Never Alcohol Use Standard Drinks/Week Comments Yes 0 (1 standard drink = 0.6 oz pur e alcohol) occ AUDIT-C Answer Date Recorded Frequency of Alcohol Consumption 2-4 times a sun02/13/2019 Average Number of Drinks Not on file 019 Frequency of Binge Drinking Not on file 01/19 PHQ-2 Answer Date Recorded PHQ-2 Total Score (If total score is 3 or more points, staff should administer the PHQ-9) 6 03/28/2021 Comments No Sex and Gender Information Value Date Recorded Sex Assigned at Not on file Legal Sex Female 5:32 PM COAT PRESSER Gender Identity Not on file Sexual Orientation Not on file Occupation Industry Job Start Date Job End Date Nurse Not on file Not on file Not on file documented as of this encounter Plan of Treatment Not on file documented as of this encounter Visit Diagnoses Diagnosis Severe episode of recurrent major depressive disorder, without psychotic features (HCC)- Primary documented in this encounter Additional Health Concerns Infection Onset Date Last Indicated Resolved Time COVID19 09/05/2021 09/05/2021 09/15/2021 3:05 AM COAT PRESSER COVID: Recovered Comment:Added based on recent COVID infection. 09/15/2021 09/19/2021 01/13/2022 3:05 AM C DT documented as of this encounter Care Teams Obstetrics And Gynecology Professor Relationship Specialty Start Date End Date Garrison Garza, PCP - General Family Medicine 02/11/19 11/29/23 Sue Muñoz, ISHMAEL [address] [place] [address] PCP - General Family Medicine 11/30/23 01/03/24 Garrison Garza, [address] [place] [address] PCP - General Family Medicine 01/04/24 Osman Silvestre DO [address] [place] [address] Referring Physician Psychiatry 05/02/21 documented as of this encounter
--- OUTSIDE RECORDS SUMMARY | 2025-04-17 10:47 | XMS_ITS | Encounter Summary ---
Author Organization [facility] Facility Care Team Providers Care Translation Director Name Role Phone [place] Garza DO Primary Care Provider + Osman Silvestre DO Unavailable +[phone] Sue Muñoz NP Primary Care Provider [phone] [place] Garza DO Primary Care Provider + Encounter Details Date Type Department Care Team (Latest Contact Info) Description 11/12/2009 Orders Only [facility] CLINCONV Provider, MD Kofi [address] [place] [address] Social History Tobacco Use Types Packs/Day Years Used Date Smoking Tobacco: Never Assessed Comments Unknown Sex and Gender Information Value Date Recorded Sex Assigned at Not on file Legal Sex Female 5:32 PM RV REPAIRER Gender Identity Not on file Sexual Orientation Not on file documented as of this encounter Plan of Treatment Not on file documented as of this encounter Procedures Procedure Name Priority Date/Time Associated Diagnosis Comments CARDIOLOGY REPORT 01/26/2017 12: 00 AM CDT documented in this encounter Results * CARDIOLOGY REPORT (01/26/2017 12:00 AM CDT) Anatomical Region Laterality Modality Other Narrative 01/26/2017 12:00 AM CDT Ordered by an unspecified provider. Historical Provider [facility] JOLEEN LLANES Final Result documented in this encounter Visit Diagnoses Not on filedocumented in this encounter Additional Health Concerns Infection Onset Date Last Indicated Resolved Time COVID: Suspected 03/05/2020 03/05/2020 03/07/2020 2:08 PM CDT Respiratory Infection (SOHEILA), contact + droplet Comment:Automatically added due to negative COVID-19 result. 03/07/2020 03/07/2020 03/21/2020 3:0 5 AM CDT COVID: Suspected 04/28/2020 04/28/2020 04/30/2020 3:46 PM CDT Respiratory Infection (SOHEILA), contact + droplet Comment:Automatically added due to negative COVID-19 result. 04/30/2020 04/30/2020 05/14/2020 3:0 6 AM CDT COVID19 09/05/2021 09/05/2021 09/15/2021 3:05 AM RV REPAIRER COVID: Recovered Comment:Added based on recent COVID infection. 09/15/2021 09/19/2021 01/13/2022 3:05 AM CDT documented as of this encounter Care Teams Translation Director Relationship Specialty Start Date End Date [place] Garza, PCP - General Family Medicine 02/11/19 11/29/23 Sue Muñoz NP [address] [place] [address] PCP - General Family Medicine 11/30/23 01/03/24 [place] Garza DO [address] [place] [address] PCP - General Family Medicine 01/04/24 Osman Silvestre DO [address] [place] [address] Referring Physician Psychiatry 05/02/21 documented as of this encounter
--- OUTSIDE RECORDS SUMMARY | 2025-04-17 10:48 | XMS_ITS | Clinical Summary ---
Author Organization [facility] Address [address] [place] [address] Care Team Providers Care Nib Inspector Name Role Phone [place] Garza DO Primary Care Provider + Source Comments [facility],non-owned Affiliates and Associated Physician Practices is amultiple site organization consisting of ambulatory clinics and hospital sitesin [place], [place], [place] and [place]. This disclosure is being madepursuant to the Care Everywhere program and may not contain all information available regarding this patient. Last updated 18.[facility] [employer] Allergies Active Allergy Reactions Criticality Noted Date Comments Codeine 01/18/2016 Dairy Enzyme Formula Rash Medium 09/22/2019 Phenytoin 01/18/2016 Milk-Related Compounds Rash Medium 10/01/2019 Bupropion 01/18/2016 Medications * This document contains information received from the source organization and may not represent a complete record from that organization. * Be aware that medications may not be up to date on this document. Alwaysverify current medications with the patient. busPIRone (BUSPAR) 15 MG tabletIndicati ons:Mood Disorder Take 1 tablet by mouth 3 times daily Reasons: Mood Disorder 90 tablet 1 10/03/19 20 Active hydrOXYzine hcl (ATARAX) 25 MG tabletIndicati ons:Anxiety Take 1 tablet by mouth 3 times daily Reasons: Feeling Anxious 90 tablet 1 10/03/19 20 Active DULoxetine (CYMBALTA) 30 MG capsuleIndicat ions:Mood Disorder Take 1 capsule by mouth once daily Reasons: Mood Disorder 30 capsule 1 10/04/19 20 Active ARIPiprazole (ABILIFY) 10 MG tabletIndicati ons:Mood Disorder Take 1 tablet by mouth once daily Reasons: Mood Disorder 30 tablet 1 10/04/19 20 Active metoprolol tartrate (LOPRESSOR) 25 MG tabletIndicati ons:Hypertensi on Take 0.5 tablets by mouth 2 times daily Reasons: High Blood Pressure Disorder 60 tablet 1 10/03/19 20 Active pantoprazole EC (PROTONIX) 40 MG tabletIndicati ons:Gastroesop hageal Reflux Disease Take 1 tablet by mouth once daily Reasons: Gastroesophageal Reflux Disease 30 tablet 1 10/04/19 20 Active Active Problems Problem Noted Date Diagnosed Date Borderline personality disorder 10/03/2019 Panic disorder 10/01/2019 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 Cannabis use disorder, mild, abuse 10/01/2019 Major depressive disorder, recurrent 10/01/2019 Nonadherence to medical treatment 10/01/2019 Acute stress reaction 09/30/2019 Generalized anxiety disorder 09/22/2019 Suicidal ideation 09/22/2019 Seizure 09/22/2019 Family History Medical History Relation Name Comments Cancer Father Heart defect Father A-fib High Blood Pressure Father Migraine Mother Relation Name Status Comments Father Mother Social History Tobacco Use Types Packs/Day Years Used Date Smoking Tobacco: Former Smokeless Tobacco: Never Alcohol Use Standard Drinks/Week Comments Yes 0 (1 standard drink = 0.6 oz pur e alcohol) 1-2 a month AUDIT-C Answer Date Recorded Frequency of Alcohol Consumption 2-4 times a sun09/23/2019 Average Number of Drinks Not on file 020 Frequency of Binge Drinking Not on file 11/2019 Comments Unknown Sex and Gender Information Value Date Recorded Sex Assigned at Not on file Legal Sex Female 11:00 AM CDT Gender Identity Not on file Sexual Orientation Not on file Last Filed Vital Signs Vital Sign Reading Time Taken Comments Blood Pressure 140/80 10/03/2019 8:29 AM SECURITY DISPATCHER Pulse 139 10/03/2019 8:29 AM SECURITY DISPATCHER Temperature 36.9 C (98.4 F) 10/03/2019 5:11 AM SECURITY DISPATCHER Respiratory Rate 16 10/03/2019 5:11 AM SECURITY DISPATCHER Oxygen Saturation 100% 10/03/2019 5:11 AM SECURITY DISPATCHER Inhaled Oxygen Concentration - - Weight 55 kg (121 lb 4.8 oz) 09/30/2019 4:27 PM SECURITY DISPATCHER Height 162.6 cm (5' 4) 09/30/2019 4:27 PM SECURITY DISPATCHER Body Mass Index 20.82 09/30/2019 4:27 PM SECURITY DISPATCHER Plan of Treatment Health Maintenance Due Date Last Done Comments HIV SCREENING 01/13/2004 HEPATITIS C SCREENING 01/08/2007 DTAP/TDAP/TD VACCINES (1 - Tdap) 01/13/2008 HEPATITIS B VACCINE (1 of 3 - 19+ 3-dose series) 01/13/2008 HPV VACCINE (1 - 3-dose SCDM series) 01/13/2016 COVID-19 VACCINE (1 - 2023- season) 2024 DEPRESSION SCREENING 08/20/2024 INFLUENZA VACCINE (#1) 2025 8, 06/05/2017, 06/02/2016, Additional history exists ZOSTER VACCINE (1 of 2) 2039 HIB VACCINE Aged Out No longer eligi ble based on patient's age to complete this topic MENINGOCOCCAL (Group B) VACCINE SHARED DECISION-MAKING Aged Out No longer eligible based on patient's age to complete this topic MENINGOCOCCAL GROUPS A/C/Y/W VACCINE Aged Out No longer eligible based on patient's age to complete this topic PNEUMOCOCCAL VACCINE Aged Out No long er eligible based on patient's age to complete this topic Insurance [facility] Advance Directives * Full Code (Latest Code Status on File) Date Activated Date Inactivated Comments 09/30/2019 4:24 PM 10/03/2019 2:49 PM * Full Code Date Activated Date Inactivated Comments 09/22/2019 1:22 PM 09/30/2019 3:46 PM Care Teams Nib Inspector Relationship Specialty Start Date End Date [place] Garza DO [address] [place] [id number] PCP - General Family Medicine 12/31/15
--- OUTSIDE RECORDS SUMMARY | 2025-04-17 10:48 | XMS_ITS | Encounter Summary ---
Author Organization [facility] Facility Care Team Providers Care Ensemble Member Name Role Phone [place] Garza DO Primary Care Provider + Osman Silvestre DO Unavailable [phone] Sue Muñoz NP Primary Care Provider [phone] [place] Garza DO Primary Care Provider + Encounter Details Date Type Department Care Team (Latest Contact Info) Description 06/14/2012 Orders Only [facility] CLINCONV Provider, MD Kofi [address] [place] [address] Social History Tobacco Use Types Packs/Day Years Used Date Smoking Tobacco: Never Assessed Comments Unknown Sex and Gender Information Value Date Recorded Sex Assigned at Not on file Legal Sex Female 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 09/15/2021 09/19/2021 01/13/2022 3:05 AM CDT documented as of this encounter Care Teams Ensemble Member Relationship Specialty Start Date End Date [place] Garza, PCP - General Family Medicine 02/11/19 11/29/23 Sue Muñoz NP [address] [place] [address] PCP - General Family Medicine 11/30/23 01/03/24 [place] Garza DO [address] [place] [address] PCP - General Family Medicine 01/04/24 Osman Silvestre DO [address] [place] [address] Referring Physician Psychiatry 05/02/21 documented as of this encounter
--- OUTSIDE RECORDS SUMMARY | 2025-04-17 10:48 | XMS_ITS | Encounter Summary ---
Author Organization [facility] Facility Care Team Providers Care Fixture Fabricator Repairer Name Role Phone G[place] Garza DO Primary Care Provider + Osman Silvestre DO Unavailable [phone] Sue Muñoz NP Primary Care Provider [phone] [place] Garza DO Primary Care Provider + Encounter Details Date Type Department Care Team (Latest Contact Info) Description 06/05/2012 Orders Only [facility] CLINCONV Provider, MD Kofi [address] [place] [address] Social History Tobacco Use Types Packs/Day Years Used Date Smoking Tobacco: Never Assessed Comments Unknown Sex and Gender Information Value Date Recorded Sex Assigned at Not on file Legal Sex Female 5:32 PM SAP CONSULTANT Gender Identity Not on file Sexual Orientation [...] CDT COVID19 09/05/2021 09/05/2021 09/15/2021 3:05 AM SAP CONSULTANT COVID: Recovered Comment:Added based on recent COVID infection. 09/15/2021 09/19/2021 01/13/2022 3:05 AM CDT documented as of this encounter Care Teams Fixture Fabricator Repairer Relationship Specialty Start Date End Date [place] Garza, PCP - General Family Medicine 02/11/19 11/29/23 Sue Muñoz NP [address] [place] [address] PCP - General Family Medicine 11/30/23 01/03/24 [place] Garza DO [address] [place] [address] PCP - General Family Medicine 01/04/24 Osman Silvestre DO [address] [place] [address] Referring Physician Psychiatry 05/02/21 documented as of this encounter
--- OUTSIDE RECORDS SUMMARY | 2025-04-17 10:48 | XMS_ITS | Encounter Summary ---
Author Organization [facility] Facility Care Team Providers Care Digital Asset Coordinator Name Role Phone [place] Garza DO Primary Care Provider + Osman Silvestre DO Unavailable [phone] Sue Muñoz NP Primary Care Provider [phone] [place] Garza DO Primary Care Provider + Encounter Details Date Type Department Care Team (Latest Contact Info) Description 11/23/2015 Orders Only [facility] CLINCONV Provider, MD Kofi [address] [place] [address] Social History Tobacco Use Types Packs/Day Years Used Date Smoking Tobacco: Never Assessed Comments Unknown Sex and Gender Information Value Date Recorded Sex Assigned at Not on file Legal Sex Female 5:32 PM SPEECH AND LANGUAGE ASSISTANT Gender Identity Not on file Sexual Orientation Not on file documented as of this encounter Plan of Treatment Not on file documented as of this encounter Procedures Procedure Name Priority Date/Time Associated Diagnosis Comments SCAN - LABS 11/24/2015 12:00 AM CDT documented in this encounter Results * SCAN - LABS (11/24/2015 12:00 AM CDT) Narrative 11/24/2015 12:00 AM CDT Ordered by an unspecified provider. Historical Provider Final Res ult documented in this encounter Visit Diagnoses Not [...] CDT COVID19 09/05/2021 09/05/2021 09/15/2021 3:05 AM SPEECH AND LANGUAGE ASSISTANT COVID: Recovered Comment:Added based on recent COVID infection. 09/15/2021 09/19/2021 01/13/2022 3:05 AM C DT documented as of this encounter Care Teams Digital Asset Coordinator Relationship Specialty Start Date End Date [place] Garza, PCP - General Family Medicine 02/11/19 11/29/23 Sue Muñoz, ISHMAEL [address] [facility] [address] [place] [address] PCP - General Family Medicine 11/30/23 01/03/24 [place] Garza, [address] [place] [address] PCP - General Family Medicine 01/04/24 Osman Silvestre DO [address] [place] [address] Referring Physician Psychiatry 05/02/21 documented as of this encounter
== END 2025-04-17 10:43 | disposition home or self-care (01) ==
LOC: ANHFOHIMG 10:43
PROVIDERS: PCP Family Medicine; Visit Provider Obstetrics & Gynecology
DX: R92.8 Other abnormal and inconclusive findings on diagnostic imaging of breast (principal)
CPT/HCPCS: 76642